=== PATIENT | male | born 1990 | race Caucasian/White ===

== ENCOUNTER 2025-02-11 11:53 | Emergency (ER) | payer SELFPAY ==
--- NOTE | ~2025-02-11 | XR_ITS ---
EXAMINATION: XR ankle LT min 3V, XR foot LT 2V DATE: 02/11/2025 12:36 INDICATION: Twisting injury to the left foot and ankle TECHNIQUE: 1. Anteroposterior, mortise, additional oblique and lateral view of the left ankle were obtained. 2. Dorsoplantar, two oblique and lateral views of the left foot were obtained. COMPARISON: None. FINDINGS: Alignment of the foot and ankle is normal. No fracture. Joint spaces are well maintained. Tiny hetero topic ossicle near the tip the medial malleolus likely sequela of chronic injury. Small Achilles and plantar calcaneal spurs. No ankle joint effusion. Soft tissue swelling about the lateral malleolus an d anterior to the ankle. IMPRESSION: 1. No acute osseous abnormality. Reviewed, dictated and finalized at location A. IMPRESSION: 1. No acute osseous abnormality.
--- OUTSIDE RECORDS SUMMARY | 2025-02-11 11:54 | XMS_ITS | Continuity of Care Document ---
Author Organization [facility] Address [address] [place] [address] [address] [place] [address] Phone Care Team Providers Care Powder Line Repairer Name Role Phone Keen OD, Ryan Unavailable Unavailable Advance Directives Directive Yes / No Effective Date File Name No Information Encounters Encounter Description Practice Location Reason(s) For Visit Diagnoses Date Provider Providers Copied on Encounter [facility], [address], [place], [place], [id number], [place] tel:[phone] [facility] [place] No Information Dec-2 7-200 0 Keen OD Ryan. [address] [facility] [place] , [address], [place], [address], [place]. tel:[phone] Family History Family Member Type Diagnosis Age At Onset No Information Payers Payer name Insurance type Covered constitution party ID Authoriza tion(s) No Information Social History Type Description Quantity Date Captured Comments Sex Male Smoking Status No Information Chief Complaint And Reason For Visit No Information Reason For Referral Reason For Referral No Information History Of Present Illness Encounter Date Complaint History Of Prese nt Illness No Information Functional Status Date Functional Assessmen t No Information Instructions Date Instruction Additional Infor mation No Information Assessments Type Assessment Date No Information Patient Care Teams Name Effective Dates (start - stop) Status Members No Information
[2025-02-11 11:57] VITALS: BP 158/97; PULSE 110; RESP 16; TEMP 36.8; O2SAT 97
--- NOTE | 2025-02-11 12:10 | ED.LOWEXIN ---
HPI - Extremity Injury (Lower) General Chief Complaint: Extremity Injury, Lower Stated Complaint: L FOOT/ANKLE INJURY Time Seen by Provider: 02/11/25 12:07 Source: patient Mode of arrival: ambulatory Limitations: no limitations History of Present Illness HPI Narrative: PATIENT TWISTED THE LEFT ANKLE/FOOT ON January, HAD X-RAY AND [facility] AND WAS TOLD THAT HE HAD NO FRACTURE. PATIENT STILL IN PAIN, BRUISES, SWELLING OF THE ANKLE LATERALLY AND FOOT. Related Data Allergies Allergy/AdvReac Type Severity Reaction Status Date / Time No Known Allergies Allergy Verified 02/11/25 12:05 Review of Systems Review of Systems: All systems reviewed & are unremarkable except as noted in HPI and below Exam Narrative: GENERAL APPEARANCE: WELL-DEVELOPED, WELL-NOURISHED SKIN: NORMAL COLOR HEAD: NORMOCEPHALIC, NONTRAUMATIC EYES: CLEAR CONJUNCTIVA ENT: OROPHARYNX NORMAL, EARS NORMAL, NOSE NORMAL NECK: SUPPLE, NONTENDER CHEST AND RESPIRATORY: AIRWAY PATENT, NO RESPIRATORY DISTRESS, NO ACCESSORY MUSCLE USE HEART: REGULAR RATE/RHYTHM ABDOMEN: SOFT, NONTENDER, NO ORGANOMEGALY, QUIET BOWEL SOUNDS VASCULAR: NORMAL PERIPHERAL PULSES, NORMAL CAPILLARY REFILL. 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, NO GROSS MOTOR DEFICIT Course Vital Signs Vital signs: Vital Signs Temperature 36.8 C 02/11/25 11:57 Pulse Rate 110 H 02/11/25 11:57 Respiratory Rate 16 02/11/25 11:57 Blood Pressure 158/97 H 02/11/25 11:57 Pulse Oximetry 97 02/11/25 11:57 Oxygen Delivery Room Air 02/11/25 11:57 Temperature 36.8 C 02/11/25 11:57 Pulse Rate 110 H 02/11/25 11:57 Respiratory Rate 16 02/11/25 11:57 Blood Pressure 158/97 H 02/11/25 11:57 Pulse Oximetry 97 02/11/25 11:57 Oxygen Delivery Room Air 02/11/25 11:57 MDM - Extremity Injury (Lower) MDM Narrative Medical decision making narrative: DIFFERENTIAL DIAGNOSIS INCLUDES SPRAIN/STRAIN VERSUS FRACTURE Differential Diagnosis Differential diagnosis: Likely other ( ABOVE) Imaging Data Radiologist's impression: Impressions Ankle X-Ray 02/11/25 12:43 IMPRESSION: 1. No acute osseous abnormality. Foot X-Ray 02/11/25 12:43 IMPRESSION: 1. No acute osseous abnormality. Critical Care Time Critical Care Time Critical Care Time: No Discharge Plan Discharge Clinical Impression: Ankle sprain and strain Patient Disposition: Home Condition: Stable Instructions: Ankle Sprain (ED) Additional Instructions: DISCHARGE INSTRUCTIONS KEEP FOOT ELEVATED ANKLE BRACE CRUTCHES TAKE TYLENOL, IBUPROFEN NEEDED Patient Language: Yoruba Follow-up/Referrals: PHYSICIAN,CUSTOMER SERVICE VOICE [Primary Care Provider] - Anson Yi MD [Physician] - 02/15/25
--- OUTSIDE RECORDS SUMMARY | 2025-02-11 12:37 | XMS_ITS | Continuity of Care Document ---
Author Organization [facility] Address [id number] [place] [address] [address] [place] [address] Phone Care Team Providers Care Infrastructure Software Engineer Name Role Phone Keen OD, Ryan Unavailable Unavailable Advance Directives Directive Yes / No Effective Date File Name No Information Encounters Encounter Description Practice Location Reason(s) For Visit Diagnoses Date Provider Providers Copied on Encounter [facility], [address], [place], [place], [id number], [place] tel:[phone] [facility] [place] No Information Dec-2 7-200 0 Keen OD Ryan. [address] [facility] [place] , [address], [place], [address], [place]. tel:[phone] Family History Family Member Type Diagnosis Age At Onset No Information Payers Payer name Insurance type Covered republican ID Authoriza tion(s) No Information Social History [...]
== END 2025-02-11 13:41 | disposition home or self-care (01) ==
PROVIDERS: Emergency Provider Emergency Medicine
DX: S93.402A Sprain of unspecified ligament of left ankle, initial encounter (principal); S96.912A Strain of unspecified muscle and tendon at ankle and foot level, left foot, initial encounter; X50.0XXA Overexertion from strenuous movement or load, initial encounter
CPT/HCPCS: 73610; 73620; 99283